=== PATIENT | female | born 1985 | race Hispanic/Latino ===

== ENCOUNTER 2020-07-22 19:23 | Emergency (ER) | payer MEDICAID ==
[2020-07-22 20:06] LABS: HCG Qualitative,Urine Negative (Negative)
--- NOTE | 2020-07-22 21:10 | XRay Report ---
BILATERAL ANKLE RADIOGRAPHS, 6 VIEWS INDICATION / CLINICAL INFORMATION: Bilateral ankle pain COMPARISON: None available. FINDINGS: RIGHT ANKLE: No acute displaced fracture or dislocation. Ankle mortise is maintained. No significant soft tissue abnormality. LEFT ANKLE: No acute displaced fracture or dislocation. Ankle mortise is maintained. No significant s oft tissue abnormality. Signer Name: Charley Fong MD Signed: 07/22/2020 9:05 PM Workstation Name: [id number]
--- NOTE | 2020-07-22 21:11 | XRay Report ---
RIGHT HIP RADIOGRAPH, 2 VIEWS INDICATION / CLINICAL INFORMATION: right hip pain COMPARISON: None available. FINDINGS: BONES / JOINT(S): No acute displaced fracture or subluxation. No significant arthritis. SOFT TISSUES: No significant abnormality. ADDITIONAL FINDINGS: Tubal ligation clips are noted in the pelvis. Signer Name: Charley Fong MD Signed: 07/22/2020 9:06 PM Workstation Name: [id number]
--- NOTE | 2020-07-22 21:13 | XRay Report ---
BILATERAL KNEE RADIOGRAPHS, 6 VIEWS INDICATION / CLINICAL INFORMATION: Bilateral knee pain COMPARISON: None available. FINDINGS: RIGHT KNEE: No acute displaced fracture or dislocation. No significant arthritis. No suprapatellar ef fusion. No significant soft tissue abnormality. LEFT KNEE: No acute displaced fracture or dislocation. No significant arthritis. No suprapatellar eff usion. No significant soft tissue abnormality. Signer Name: Charley Fong MD Signed: 07/22/2020 9:08 PM Workstation Name: [id number]
[2020-07-22] MEDS ORDERED: HYDROcodone/ACETAMINOPHEN 5-325 MG TAB PO ONE (21:28)
[2020-07-22] MEDS ORDERED: NEOMY 3.5 MG/BACIT 400 UNITS/POLY B 5000 UNITS/GM OINT PACKET TP ONE (21:28)
[2020-07-22] MEDS ORDERED: ONDANSETRON 4 MG ODT TAB PO ONE (21:28)
[2020-07-22] MEDS ORDERED: IBUPROFEN 600 MG TAB PO ONE (21:28)
[2020-07-22] MEDS ORDERED: DIPHtheria,PERTUSSIS(ACELL),TETANUS VACCINE/PF 0.5 ML VIAL IM ONE (21:29)
--- NOTE | 2020-07-22 22:25 | Emergency Department Report ---
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 Patient states that her pain got worse in the last 12 hours. Patient denies head or neck injuries, back pain, abdominal pain, chest pain, dizziness, syncope, seizures, LOC, nausea, vomiting, numbness and tingling of upper and lower extremities bilaterally. MD Complaint: fall, other (Bilateral knees and ankle pain; right knee abrasion; right hip pain) -: Sudden, hour(s) (24) Fall From: other (fell off a truck) When Fall Occurred: 24 hours EARLY MORNING Fall Witnessed: yes, by family Place Fall Occurred: street Loss of Consciousness: none Prolonged Down Time?: no Symptoms Prior to Fall: none Location: other (Bilateral knees, bilateral ankles and right hip pain) Location - Extremities: Left: Knee, Ankle, Right: Thigh, Knee, Ankle Severity: severe Severity scale (0 -10): 8 Quality: sharp, aching Context: tripped/slipped Associated Symptoms: denies. denies: headache, neck pain, chest paint, shortness of breath, abdominal pain, hematuria, unable to walk, lightheaded, vertigo, confusion - Related Data Previous Rx's Medication Instructions Recorded Last Taken Type Ibuprofen [Motrin] 800 mg PO Q8HR PRN #30 tablet 07/22/20 Unknown Rx tiZANidine [Zanaflex 4mg TAB] 4 mg PO Q8H PRN #21 tablet 07/22/20 Unknown Rx traMADoL [Ultram] 50 mg PO Q6HR PRN #12 tablet 07/22/20 Unknown Rx Allergies Allergy/AdvReac Type Severity Reaction Status Date / Time No Known Allergies Allergy Unverified 07/22/20 19:50 ED Review of Systems ROS: Stated complaint: SENT FROM URGENT CARE Other details as noted in HPI Constitutional: denies: chills, fever Eyes: denies: eye pain, eye discharge, vision change ENT: denies: ear pain, throat pain Respiratory: denies: cough, shortness of breath, wheezing Cardiovascular: denies: chest pain, palpitations Endocrine: no symptoms reported Gastrointestinal: denies: abdominal pain, nausea, diarrhea Genitourinary: denies: urgency, dysuria, discharge Musculoskeletal: arthralgia (Bilateral knees and ankles pain; right hip pain; anterior right knee abrasion), myalgia. denies: back pain, joint swelling Skin: other (Anterior right knee abrasion ). denies: rash, lesions Neurological: denies: headache, weakness, paresthesias Psychiatric: denies: anxiety, depression Hematological/Lymphatic: denies: easy bleeding, easy bruising ED Past Medical Hx - Past Medical History Previous Medical History?: Yes Hx Kidney Stones: Yes Hx Asthma: Yes Additional medical history: Endometriosis - Surgical History Past Surgical History?: Yes Additional Surgical History: D&C - Social History Smoking Status: Never Smoker Substance Use Type: None - Medications Home Medications: Home Medications Medication Instructions Recorded Confirmed Last Taken Type Ibuprofen [Motrin] 800 mg PO Q8HR PRN #30 tablet 07/22/20 Unknown Rx tiZANidine [Zanaflex 4mg TAB] 4 mg PO Q8H PRN #21 tablet 07/22/20 Unknown Rx traMADoL [Ultram] 50 mg PO Q6HR PRN #12 tablet 07/22/20 Unknown Rx ED Physical Exam - General Limitations: Physical Limitation General appearance: alert, in no apparent distress - Head Head exam: Present: atraumatic, normocephalic, normal inspection - Eye Eye exam: Present: normal appearance, PERRL, EOMI Pupils: Present: normal accommodation - ENT ENT exam: Present: normal exam, normal orophraynx, mucous membranes moist, TM's normal bilaterally, normal external ear exam - Neck Neck exam: Present: normal inspection, full ROM. Absent: tenderness - Respiratory Respiratory exam: Present: normal lung sounds bilaterally. Absent: respiratory distress, wheezes, rales, rhonchi, stridor, chest wall tenderness, accessory muscle use, decreased breath sounds, prolonged expiratory - Cardiovascular Cardiovascular Exam: Present: normal rhythm, tachycardia, normal heart sounds. Absent: systolic murmur, diastolic murmur, rubs, gallop - GI/Abdominal GI/Abdominal exam: Present: soft, normal bowel sounds. Absent: tenderness, guarding, rebound, hyperactive bowel sounds, hypoactive bowel sounds - Extremities Exam Extremities exam: Present: normal inspection, full ROM, tenderness (Palpable bilateral knee and ankle tenderness; Palpable right hip tenderness), normal capillary refill. Absent: pedal edema, joint swelling, calf tenderness - Back Exam Back exam: Present: normal inspection, full ROM. Absent: tenderness, CVA te nderness (L), muscle spasm, paraspinal tenderness, vertebral tenderness - Neurological Exam Neurological exam: Present: alert, oriented X3, CN II-XII intact, normal gait, reflexes normal - Psychiatric Psychiatric exam: Present: normal affect, normal mood - Skin Skin exam: Present: warm, dry, intact, normal color, abrasion (Anterior right knee abrasions). Absent: rash ED Course Vital Signs 07/22/20 07/22/20 19:45 22:45 Temperature 98.2 F 98.3 F Pulse Rate 109 H 74 Respiratory 20 18 Rate Blood Pressure 127/77 Blood Pressure 128/76 [Left] O2 Sat by Pulse 97 98 Oximetry ED Medical Decision Making - Radiology Data Radiology results: report reviewed, image reviewed Findings [address] [address] XRay Report Signed Patient: TED MITCHELL MR#: [id number] : 1985 Acct:[id number] Age/Sex: 35 / F ADM Date: 07/22/20 Loc: ED Attending Dr: Ordering Physician: Kaitlin Fields MD Date of Service: 07/22/20 Procedure(s): XR knee BILAT 3V Accession Number(s): [id number] cc: Kaitlin Fields MD Fluoro Time In Minutes: BILATERAL KNEE RADIOGRAPHS, 6 VIEWS INDICATION / CLINICAL INFORMATION: Bilateral knee pain COMPARISON: None available. FINDINGS: RIGHT KNEE: No acute displaced fracture or dislocation. No significant arthr itis. No suprapatellar effusion. No significant soft tissue abnormality. LEFT KNEE: No acute displaced fracture or dislocation. No significant arthritis. No suprapatellar effusion. No significant soft tissue abnormality. Signer Name: Charley Fong MD Signed: 07/22/2020 9:08 PM Workstation Name: [id number] Transcribed By: C Dictated By: Charley Fong MD Electronically Authenticated By: Charley Fong MD Signed Date/Time: 07/22/202107 DD/ 05 TD/TT: Findings [facility] [address] [place] [address] XRay Report Signed Patient: TED MITCHELL MR#: [id number] : 1985 Acct:[id number] Age/Sex: 35 / F ADM Date: 07/22/20 Loc: ED Attending Dr: Ordering Physician: Kaitlin Fields MD Date of Service: 07/22/20 Procedure(s): XR hip 2-3V RT Accession Number(s): [id number] cc: Kaitlin Fields MD Fluoro Time In Minutes: RIGHT HIP RADIOGRAPH, 2 VIEWS INDICATION / CLINICAL INFORMATION: right hip pain COMPARISON: None available. FINDINGS: BONES / JOINT(S): No acute displaced fracture or subluxation. No significant arthritis. SOFT TISSUES: No significant abnormality. ADDITIONAL FINDINGS: Tubal ligation clips are noted in the pelvis. Signer Name: Charley Fong MD Signed: 07/22/2020 9:06 PM Workstation Name: [id number] Transcribed By: [facility] Dictated By: Charley Fong MD Electronically Authenticated By: Charley Fong MD Signed Date/Time: 07/22/202105 DD/ 04 TD/TT: Findings [facility] [address] [place] [address] XRay Report Signed Patient: TED MITCHELL MR#: [id number] : 1985 Acct:[id number] Age/Sex: 35 / F ADM Date: 07/22/20 Loc: ED Attending Dr: Ordering Physician: Kaitlin Fields MD Date of Service: 07/22/20 Procedure(s): XR ankle BILAT 3+V Accession Number(s): [id number] cc: Kaitlin Fields MD Fluoro Time In Minutes: BILATERAL ANKLE RADIOGRAPHS, 6 VIEWS INDICATION / CLINICAL INFORMATION: Bilateral ankle pain COMPARISON: None available. FINDINGS: RIGHT ANKLE: No acute displaced fracture or dislocation. Ankle mortise is maintained. No significant soft tissue abnormality. LEFT ANKLE: No acute displaced fracture or dislocation. Ankle mortise is maintained. No significant soft tissue abnormality. 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 Patient states that her pain got worse in the last 12 hours. In the ED, patient is alert and oriented x3 and is in no acute distress, but appears to the be in pain. Patient was treated for pain in the ED and also received booster Tetanus vaccination. Bilateral knees and ankle x-rays showed no acute fractures and subluxations. Right hip x-ray shows no acute fractures or subluxations. On reevaluation, patient's pain is well controlled with medications, and tachyca rdia resolved. Patient was discharged home on pain medications and muscle relaxants . Patient was advised to follow up with your Primary care physician in 5-7 days for reevaluation or return to the ED immediately if symptoms get worse. - Differential Diagnosis Knee sprain; Ankle sprain; hip contusion; Knee fracture; abrasions Critical care attestation.: If time is entered above; I have spent that time in minutes in the direct care of this critically ill patient, excluding procedure time. ED Disposition Clinical Impression: Sprain of both knees Severe ankle sprain Qualifiers: Encounter type: initial encounter Laterality: unspecified laterality Qualified Code(s): S93.409A - Sprain of unspecified ligament of unspecified ankle, initial encounter Contusion of right hip and thigh Qualifiers: Encounter type: initial encounter Qualified Code(s): S70.01XA - Contusion of right hip, initial encounter Muscle strain of lower leg Qualifiers: Encounter type: initial encounter Laterality: unspecified laterality Qualified Code(s): S86.919A - Strain of unspecified muscle(s) and tendon(s) at lower leg level, unspecified leg, initial encounter Disposition: TO HOME OR SELFCARE Is pt being admited?: No Does the pt Need Aspirin: No Condition: Stable Instructions: Hip Sprain, Ankle Sprain, [id number], Knee Sprain, Adult, [id number], Muscle Strain, [id number] Additional Instructions: The bilateral knee and ankle x-rays showed no acute fractures or subluxations. The right hip x-ray also showed no acute fractures or subluxations. Therefore take medication with food, drink plenty of fluids and follow-up with your primary care physician in 7 to 10 days for reevaluation. Return to the ED immediately if symptoms get worse. Prescriptions: Ibuprofen [Motrin] 800 mg PO Q8HR PRN #30 tablet PRN Reason: Pain , Severe (7-10) traMADoL [Ultram] 50 mg PO Q6HR PRN #12 tablet PRN Reason: Pain tiZANidine [Zanaflex 4mg TAB] 4 mg PO Q8H PRN #21 tablet PRN Reason: Muscle Spasm Referrals: [facility] [Provider Group] - 7-10 days Time of Disposition: 22:25 Print Language: SLOVAK
[2020-07-23 00:33] VITALS: BP 128/76
== END 2020-07-22 22:42 | disposition home or self-care (01) ==
LOC: ED 19:23
DX: S93.492A Sprain of other ligament of left ankle, initial encounter (principal); S93.491A Sprain of other ligament of right ankle, initial encounter; S83.8X2A Sprain of other specified parts of left knee, initial encounter; S83.8X1A Sprain of other specified parts of right knee, initial encounter; S70.01XA Contusion of right hip, initial encounter; J45.909 Unspecified asthma, uncomplicated; Z79.899 Other long term (current) drug therapy; X58.XXXA Exposure to other specified factors, initial encounter; Y93.89 Activity, other specified; Y92.89 Other specified places as the place of occurrence of the external cause; Y99.8 Other external cause status
CPT/HCPCS: 73502; 73562; 73610; 81025; 90471; 90715; 99284; A6250; Q0162